=== PATIENT | female | born 1960 | race African-American/Black ===

== ENCOUNTER 2017-01-05 15:10 | Emergency (ER) | payer MEDICARE, OTHER ==
[~2017-01-05] VITALS: Ht 162.6 cm; Wt 94.8 kg
--- NOTE | ~2017-01-05 | CR181 ---
[facility] A Service [facility] RADIOLOGY TEXT RESULTS PATIENT: DARIUS BELCHER LOCATION: SED : 60 UNIT #: [id number] AGE: [address]: Harish Gonzalez MD SEX: F ORDER DR: [id number] [place] [id number] E MR#: [id number] Acc #: [id number] NAME: DARIUS BELCHER : 1960 SEX: F STUDY DATE/TIME: 01/05/2017 16:17 UNIT: SED ROOM: STUDY DESCRIPTION: CR Lumbar Spine 2 or 3 Views Attending Physician: Harish Gonzalez M.D. Ordering Physician: Harish Gonzalez M.D. Primary Care Physician: [facility] MEDICAL IMAGING REPORT This report is preliminary unless electronic signature is present. EXAM Lumbar series 01/05/2017 INDICATIONS A 56-year-old female with hip and lumbar spine pain for 2 days. No known injury. Possible working out injury. TECHNIQUE Three views of the lumbar spine. No comparisons. FINDINGS Vertebral body heights and alignment preserved. No acute fracture. No significant degenerative change. Metallic clips in the abdomen and pelvis indicative of prior surgery. Nonspecific calcification in the right upper quadrant could represent contents in the fecal stream, and upper pole renal stone, or gallstone. Probable vascular calcifications in the pelvis. IMPRESSION No acute fracture, malalignment or significant degenerative change. Postoperative sequela. Dictated by... Jay Jay Leiva M.D. THIS IS AN ELECTRONICALLY VERIFIED REPORT Jay Jay Leiva M.D. at 01/08/2017 3:27 PM Chris TD: 01/05/2017 22:08 JOB #: [id number] [facility] A Service [facility] RADIOLOGY TEXT RESULTS PATIENT: DARIUS BELCHER LOCATION: SED : 60 UNIT #: [id number] AGE: [address]: Harish Gonzalez MD SEX: F ORDER DR: MEDICAL IMAGING REPORT Page 1 of 1
--- NOTE | ~2017-01-05 | CR150 ---
[facility] A Service of [facility] RADIOLOGY TEXT RESULTS PATIENT: DARIUS BELCHER LOCATION: SED : 60 UNIT #: [id number] AGE: [address]: Harish Gonzalez MD SEX: F ORDER DR: [id number] [address] [address] [id number] E MR#: [id number] Acc #: [id number] NAME: DARIUS BELCHER : 1960 SEX: F STUDY DATE/TIME: 01/05/2017 16:17 UNIT: SED ROOM: STUDY DESCRIPTION: CR Hip Min 2 Views Lt Attending Physician: Harish Gonzalez M.D. Ordering Physician: Harish Gonzalez M.D. Primary Care Physician: [facility] MEDICAL IMAGING REPORT This report is preliminary unless electronic signature is present. EXAM Left hip, 01/05/2017 INDICATIONS A 56-year-old female complaining of left hip and low back pain. No known injury. Possible working out injury though. Symptoms 2 days. TECHNIQUE Two views left hip. No comparisons. FINDINGS Postop changes in the right lower quadrant. Probable vascular calcifications in the right hemipelvis. No acute fracture or significant degenerative change of the left hand. IMPRESSION Negative Dictated by... Jay Jay Leiva M.D. THIS IS AN ELECTRONICALLY VERIFIED REPORT Jay Jay Leiva M.D. at 01/08/2017 3:27 PM Chris TD: 01/05/2017 22:11 JOB #: [id number] MEDICAL IMAGING REPORT Page 1 of 1
[~2017-01-05 15:10] MED LIST: ALAVERT10 MG PO; ALBUTEROL17 GM INH; AMOXICILLIN500 M1 PO; BACTRIM DS TABL1 TAB PO; BENAZEPRIL; COMBIVENT14.7 GM INH; FLEXERIL10 M1 PO; FLEXERIL10 MG PO; GUAIFENESIN W-120 ML PO; HYDROCHLOROTH12.5 M1; KEFLEX PO; KETOPROFEN PO; LISINOPRIL20 MG PO; LORTAB 5/500 TA1 TA1 PO; LOSARTAN POTASS50 MG PO; LOTENSIN PO; MEDROL DOSEPAK4 MG PO; MEDROL PO; MEDROL4 MG/DOSE- PO; NAPROSYN500 MG PO; NORVASC10 MG PO; ORUDIS75 M1 PO; PREDNISONE PO; SPIRONOLAC1 TAB 25/2 PO; TESSALON200 MG PO; ULTRAM PO; VICODIN 5/1 TAB 5/50 PO; VICODIN 5/500 T1 TAB PO; ZANTAC150 MG PO; ZITHROMAX1 G/PKT PO; ZYRTEC5 MG PO
[2017-01-05] MEDS ORDERED: PROTONIX (15:22)
== END 2017-01-05 17:37 | disposition home or self-care (01) ==
LOC: SED 15:10
DX: M54.42 Lumbago with sciatica, left side (principal); Z79.899 Other long term (current) drug therapy
CPT/HCPCS: 72100; 73502; 99283